=== PATIENT | male | born 1960 | race Caucasian/White ===

== ENCOUNTER 2021-06-14 10:28 | Inpatient (IN) | payer OTHER ==
[2021-06-14] MEDS ORDERED: diazePAM 5 MG TABLET PO SCH (11:00)
[2021-06-14] MEDS ORDERED: MAG HYDROX/AL HYDROX/SIMETH 30 ML UNIT-DOSE CUP PO PRN (11:09)
[2021-06-14] MEDS ORDERED: ACETAMINOPHEN 325 MG TABLET (FP) PO PRN ×2 (11:09)
[2021-06-14] MEDS ORDERED: diazePAM 5 MG TABLET PO PRN (11:09)
[2021-06-14] MEDS ORDERED: MENTHOL/PHENOL 1 EACH UD MM PRN (11:09)
[2021-06-14] MEDS ORDERED: ONDANSETRON *ODT* 4 MG TABLET SL PRN (11:09)
[2021-06-14] MEDS ORDERED: IBUPROFEN 400 MG TABLET (FP) PO PRN (11:09)
[2021-06-14] MEDS ORDERED: BISMUTH SUBSALICYLATE 262 MG/15 ML BTL PO PRN (11:09)
[2021-06-14] MEDS ORDERED: NICOTINE 10 MG CARTRIDGE (INHALER) IH PRN (11:09)
[2021-06-14] MEDS ORDERED: MAGNESIUM CITRATE 300 ML BOTTLE PO PRN (11:09)
[2021-06-14] MEDS ORDERED: METHOCARBAMOL 500 MG TABLET PO PRN (11:09)
[2021-06-14] MEDS ORDERED: MAGNESIUM HYDROX 2400MG/30ML ORAL SUSPENSION 30 ML CUP PO PRN (11:09)
[2021-06-14 11:25] VITALS: BMI 20.7
[2021-06-14] MEDS ORDERED: LORazepam 1 MG TABLET PO PRN (11:56)
[2021-06-14] MEDS: METOPROLOL TARTRATE 25 MG TABLET (FP) PO SCH (13:27)
[2021-06-14] MEDS: PRENATAL VITAMINS W/ FOLIC ACID TABLET (FP) PO SCH (13:27)
[2021-06-14] MEDS: hydrOXYzine PAMOATE 25 MG CAPSULE (FP) PO SCH ×3 (13:33→22:54)
[2021-06-14] MEDS ORDERED: LIPASE PO SCH ×2 (14:00)
[2021-06-14] MEDS ORDERED: AMYLASE PO SCH ×2 (14:00)
[2021-06-14] MEDS ORDERED: PROTEASE PO SCH ×2 (14:00)
[2021-06-14] MEDS ORDERED: [UNRECOGNIZED DRUG - OTHER] PO SCH ×2 (14:00)
[2021-06-14 14:33] LABS: HEMATOCRIT 33.5 % (35.4-49); HEMOGLOBIN 11.5 GM/dL (11.7-16.9); MCH 36.2 pg (25.7-33.7); MCHC 34.4 g/dl (32.0-35.9); MEAN PLT VOLUME 11.2 fl (7.5-11.1); PLATELET COUNT 72 10^3/uL (134-434); RBC 3.19 M/mm3 (4.00-5.60); RDW 14.9 % (11.9-15.9)
[2021-06-14 16:30] LABS: ALBUMIN 2.6 g/dl (3.4-5.0); BLOOD UREA NITROGEN 11.6 mg/dL (7-18); CALCIUM 7.9 mg/dL (8.5-10.1); CREATININE 0.7 mg/dL (0.55-1.3); TOT PROT 7.4 g/dl (6.4-8.2)
[2021-06-14] MEDS ORDERED: PATIENT'S OWN MEDICATION (NON-FORMULARY) (Lipase/Protease/Amylase [Creon Dr 24,000 Units C PO SCH (17:30)
[2021-06-14] MEDS: LORazepam 2 MG TABLET PO SCH ×2 (17:47→22:52)
[2021-06-14] MEDS: LIPASE/PROTEASE/AMYLASE 6,000 UNIT CAPSULE PO SCH (17:51)
[2021-06-14] MEDS ORDERED: prednisoLONE ACETATE 1% OPHTH SUSP 5 ML BOTTLE OS SCH (22:00)
[2021-06-14] MEDS: THIAMINE HCL 100 MG TABLET (FP) PO SCH (22:52)
[2021-06-14] MEDS: MELATONIN 5 MG TABLETS PO SCH (22:52)
[2021-06-14] MEDS: OFLOXACIN 0.3% OPHTHALMIC SOLUTION 5 ML BOTTLE AD SCH (22:53)
[2021-06-14] MEDS: prednisoLONE ACETATE 1% OPHTH SUSP 5 ML BOTTLE OS SCH (22:53)
[2021-06-14] MEDS: DOCUSATE SODIUM 100 MG CAPSULE (FP) PO SCH (22:53)
[2021-06-14] MEDS: PANTOPRAZOLE 40 MG TABLET PO SCH (22:54)
[2021-06-15] MEDS: METOPROLOL TARTRATE 25 MG TABLET (FP) PO SCH ×3 (00:53→22:36)
[2021-06-15] MEDS: hydrOXYzine PAMOATE 25 MG CAPSULE (FP) PO SCH ×5 (05:49→22:36)
[2021-06-15] MEDS: LORazepam 2 MG TABLET PO SCH ×4 (05:50→22:36)
[2021-06-15] MEDS: LIPASE/PROTEASE/AMYLASE 6,000 UNIT CAPSULE PO SCH ×3 (08:25→17:52)
[2021-06-15] MEDS: DOCUSATE SODIUM 100 MG CAPSULE (FP) PO SCH ×2 (10:49→22:35)
[2021-06-15] MEDS: PANTOPRAZOLE 40 MG TABLET PO SCH ×2 (10:49→22:35)
[2021-06-15] MEDS: PRENATAL VITAMINS W/ FOLIC ACID TABLET (FP) PO SCH (10:49)
[2021-06-15] MEDS: prednisoLONE ACETATE 1% OPHTH SUSP 5 ML BOTTLE OS SCH ×2 (10:51→22:38)
[2021-06-15] MEDS: OFLOXACIN 0.3% OPHTHALMIC SOLUTION 5 ML BOTTLE AD SCH ×2 (10:51→22:37)
[2021-06-15] MEDS: ASCORBIC ACID 500 MG TABLET (FP) PO SCH ×2 (12:22→14:54)
[2021-06-15] MEDS: FUROSEMIDE 40 MG TABLET (FP) PO SCH ×2 (12:22→14:54)
[2021-06-15] MEDS: THIAMINE HCL 100 MG TABLET (FP) PO SCH (22:35)
[2021-06-15] MEDS: MELATONIN 5 MG TABLETS PO SCH (22:37)
[2021-06-16] MEDS: LORazepam 1 MG TABLET PO SCH ×4 (05:02→22:43)
[2021-06-16] MEDS: hydrOXYzine PAMOATE 25 MG CAPSULE (FP) PO SCH ×5 (05:02→22:44)
[2021-06-16 05:45] VITALS: TEMP 98.2
[2021-06-16] MEDS ORDERED: diazePAM 5 MG TABLET PO SCH (06:00)
[2021-06-16] MEDS: LIPASE/PROTEASE/AMYLASE 6,000 UNIT CAPSULE PO SCH ×3 (08:13→18:30)
[2021-06-16] MEDS: PRENATAL VITAMINS W/ FOLIC ACID TABLET (FP) PO SCH (10:29)
[2021-06-16] MEDS: FUROSEMIDE 40 MG TABLET (FP) PO SCH (10:30)
[2021-06-16] MEDS: DOCUSATE SODIUM 100 MG CAPSULE (FP) PO SCH ×2 (10:30→22:43)
[2021-06-16] MEDS: ASCORBIC ACID 500 MG TABLET (FP) PO SCH (10:30)
[2021-06-16] MEDS: OFLOXACIN 0.3% OPHTHALMIC SOLUTION 5 ML BOTTLE AD SCH ×2 (10:30→22:44)
[2021-06-16] MEDS: METOPROLOL TARTRATE 25 MG TABLET (FP) PO SCH ×2 (10:30→22:44)
[2021-06-16] MEDS: PANTOPRAZOLE 40 MG TABLET PO SCH ×2 (10:30→22:44)
[2021-06-16] MEDS: prednisoLONE ACETATE 1% OPHTH SUSP 5 ML BOTTLE OS SCH ×2 (10:31→22:44)
[2021-06-16 11:14] LABS: BASO % 0.2 % (0-2.0); EOS % 0.4 % (0-4.5); HEMATOCRIT 36.8 % (35.4-49); HEMOGLOBIN 12.6 GM/dL (11.7-16.9); LYMPH % 40.7 % (8-40); MCH 36.1 pg (25.7-33.7); MCHC 34.3 g/dl (32.0-35.9); MEAN CELL VOLUME 105.2 fl (80-96); MEAN PLT VOLUME 12.4 fl (7.5-11.1); MONO % 10.5 % (3.8-10.2); NEUT % 48.2 % (42.8-82.8); PLATELET COUNT 60 10^3/uL (134-434); RDW 14.7 % (11.9-15.9); WHITE BLOOD COUNT 4.7 K/mm3 (4.0-10.0)
[2021-06-16 13:26] VITALS: BP 148/67; PULSE 75
[2021-06-16 14:57] LABS: ANISOCYTOSIS 2+; MACROCYTOSIS 1+; OVALOCYTE 1+; PLATELET ESTIMATE DECREASED; TARGET CELLS 1+
[2021-06-16] MEDS: MELATONIN 5 MG TABLETS PO SCH (22:44)
[2021-06-16] MEDS: THIAMINE HCL 100 MG TABLET (FP) PO SCH (22:45)
[2021-06-17] MEDS ORDERED: LORazepam 0.5 MG TABLET PO PRN
[2021-06-17] MEDS ORDERED: LORazepam 0.5 MG TABLET PO SCH (05:00)
[2021-06-17] MEDS ORDERED: diazePAM 5 MG TABLET PO SCH (06:00)
[2021-06-18] MEDS ORDERED: LORazepam 0.5 MG TABLET PO ONE (05:00)
[2021-06-18] MEDS ORDERED: diazePAM 5 MG TABLET PO ONE (06:00)
== END 2021-06-16 23:29 | disposition short-term general hospital (02) | DRG 897 ==
LOC: YASAS 10:28 → Y6N 12:08
PROVIDERS: ADMIT Allergy & Immunology; ATTEND Allergy & Immunology
PROC: HZ2ZZZZ Detoxification Services for Substance Abuse Treatment (ICD-10-PCS; principal; 2021-06-14)
DX: F10.230 Alcohol dependence with withdrawal, uncomplicated (principal); F10.282 Alcohol dependence with alcohol-induced sleep disorder; F10.24 Alcohol dependence with alcohol-induced mood disorder; F03.90 Unspecified dementia, unspecified severity, without behavioral disturbance, psychotic disturbance, mood disturbance, and anxiety; K72.10 Chronic hepatic failure without coma; K74.60 Unspecified cirrhosis of liver; K21.9 Gastro-esophageal reflux disease without esophagitis; E78.5 Hyperlipidemia, unspecified; M25.551 Pain in right hip; W06.XXXA Fall from bed, initial encounter; Y92.230 Patient room in hospital as the place of occurrence of the external cause; Z96.652 Presence of left artificial knee joint; Z87.11 Personal history of peptic ulcer disease; Z99.89 Dependence on other enabling machines and devices
CPT/HCPCS: 36415; 80053; 85025; 85027; 86593; 86780; 93005; 93010; C9803; U0003; U0005

== ENCOUNTER 2021-06-16 15:06 | Observation (INO) | payer OTHER ==
[2021-06-16 16:26] VITALS: BMI 26.6
[2021-06-16 17:34] LABS: BASO % 0.4 % (0-2.0); EOS % 0.2 % (0-4.5); HEMATOCRIT 34.3 % (35.4-49); HEMOGLOBIN 11.8 GM/dL (11.7-16.9); LYMPH % 35.7 % (8-40); MCH 35.5 pg (25.7-33.7); MCHC 34.5 g/dl (32.0-35.9); MEAN CELL VOLUME 102.8 fl (80-96); MEAN PLT VOLUME 10.9 fl (7.5-11.1); MONO % 11.8 % (3.8-10.2); NEUT % 51.9 % (42.8-82.8); PLATELET COUNT 55 10^3/uL (134-434); RBC 3.33 M/mm3 (4.00-5.60); RDW 14.2 % (11.9-15.9); WHITE BLOOD COUNT 4.4 K/mm3 (4.0-10.0)
[2021-06-16 18:30] LABS: ALBUMIN 2.8 g/dl (3.4-5.0); ALK PHOS 91 U/L (45-117); ANION GAP 7 MMOL/L (8-16); BLOOD UREA NITROGEN 9.2 mg/dL (7-18); CALCIUM 8.2 mg/dL (8.5-10.1); CHLORIDE 102 mmol/L (98-107); CO2 29 mmol/L (21-32); CREATININE 0.8 mg/dL (0.55-1.3); GLUCOSE,RANDOM 112 mg/dL (74-106); MAGNESIUM 1.3 mg/dL (1.8-2.4); SGOT/AST 67 U/L (15-37); SGPT/ALT 28 U/L (13-61); SODIUM 138 mmol/L (136-145); TOT PROT 7.7 g/dl (6.4-8.2)
[2021-06-16] MEDS ORDERED: POTASSIUM CHLORIDE TABS 20 MEQ TABLET.ER (FP) PO ONE ×2 (18:40→19:30)
[2021-06-16] MEDS ORDERED: MAGNESIUM OXIDE 400 MG TABLET (FP) PO ONE (18:40)
[2021-06-16] MEDS ORDERED: FOLIC ACID 1 MG TABLET (FP) PO ONE (18:56)
[2021-06-16] MEDS ORDERED: THIAMINE HCL 200 MG/2 ML VIAL IVPB ONE (18:56)
[2021-06-16] MEDS ORDERED: THIAMINE HCL 200 MG/2 ML VIAL ONE (19:29)
[2021-06-16] MEDS ORDERED: FOLIC ACID 1 MG TABLET (FP) ONE (19:30)
[2021-06-16] MEDS ORDERED: MAGNESIUM OXIDE 400 MG TABLET (FP) ONE (19:30)
[2021-06-16 21:48] LABS: EPI CELLS 3 /uL (0-25.1); HYALINE CASTS 1 /uL (0-3.1); PH,URINE 6.5 (5.0-8.0); URINE APPEARANCE CLEAR; URINE BACTERIA 15 /uL (0-1359); URINE BILIRUBIN NEGATIVE (NEGATIVE); URINE COLOR DK YELLOW; URINE GLUCOSE (UA) NEGATIVE (NEGATIVE); URINE KETONE TRACE (NEGATIVE); URINE LEUK ESTERASE TRACE (NEGATIVE); URINE NITRITE NEGATIVE (NEGATIVE); URINE PROTEIN NEGATIVE (NEGATIVE); URINE RBC 389 /uL (0-23.9); URINE WBC 13 /uL (0-25.8)
[2021-06-16] MEDS ORDERED: LORazepam 2 MG/ML SDV VIAL IVPUSH ONE (22:26)
[2021-06-16] MEDS ORDERED: LORazepam 2 MG/ML SDV VIAL ONE (22:33)
[2021-06-16] MEDS ORDERED: LORazepam 1 MG TABLET PO PRN (22:48)
[2021-06-16] MEDS ORDERED: PROCHLORPERAZINE INJECTION 10 MG/2 ML VIAL IVPB PRN (22:50)
[2021-06-16] MEDS ORDERED: MELATONIN 5 MG TABLETS PO PRN (22:51)
[2021-06-16] MEDS ORDERED: HALOPERIDOL LACTATE 5 MG/ML IM ONE (23:00)
[2021-06-16] MEDS ORDERED: HALOPERIDOL LACTATE 5 MG/ML ONE (23:07)
[2021-06-17] MEDS ORDERED: FOLIC ACID 1 MG TABLET (FP) ONE (08:19)
[2021-06-17] MEDS ORDERED: ENOXAPARIN NA (PORCINE) 40 MG/0.4 ML DISP.SYRIN SQ ONE (08:19)
[2021-06-17] MEDS ORDERED: THIAMINE HCL 100 MG TABLET (FP) ONE (08:19)
[2021-06-17] MEDS: FOLIC ACID 1 MG TABLET (FP) PO SCH (09:32)
[2021-06-17] MEDS: ENOXAPARIN NA (PORCINE) 40 MG/0.4 ML DISP.SYRIN SQ SCH (09:32)
[2021-06-17] MEDS: THIAMINE HCL 100 MG TABLET (FP) PO SCH (09:32)
[2021-06-17 11:52] LABS: BASO % 0.2 % (0-2.0); EOS % 0.4 % (0-4.5); HEMATOCRIT 33.4 % (35.4-49); HEMOGLOBIN 11.4 GM/dL (11.7-16.9); LYMPH % 37.3 % (8-40); MCHC 34.2 g/dl (32.0-35.9); MEAN CELL VOLUME 105.2 fl (80-96); MEAN PLT VOLUME 12.1 fl (7.5-11.1); MONO % 12.6 % (3.8-10.2); NEUT % 49.5 % (42.8-82.8); PLATELET COUNT 59 10^3/uL (134-434); RBC 3.17 M/mm3 (4.00-5.60); RDW 14.3 % (11.9-15.9); WHITE BLOOD COUNT 4.1 K/mm3 (4.0-10.0)
[2021-06-17 12:17] LABS: CHLORIDE 106 mmol/L (98-107); SODIUM 141 mmol/L (136-145)
[2021-06-17 12:23] LABS: CALCIUM 8.1 mg/dL (8.5-10.1)
[2021-06-17 12:24] LABS: ALBUMIN 2.3 g/dl (3.4-5.0); ANION GAP 5 MMOL/L (8-16); BLOOD UREA NITROGEN 14.7 mg/dL (7-18); CO2 29 mmol/L (21-32); GLUCOSE,RANDOM 110 mg/dL (74-106); MAGNESIUM 1.3 mg/dL (1.8-2.4)
[2021-06-17 12:26] LABS: SGPT/ALT 26 U/L (13-61); TRIGLYCERIDES 58 mg/dL (0-150)
[2021-06-17 12:27] LABS: BILIRUBIN,TOTAL 2.5 mg/dL (0.2-1); CHOLESTEROL 136 mg/dL (50-200); CREATININE 0.9 mg/dL (0.55-1.3); PHOSPHOROUS 3.7 mg/dL (2.5-4.9); SGOT/AST 58 U/L (15-37)
[2021-06-17 12:28] LABS: ALK PHOS 78 U/L (45-117); LDL CHOLESTEROL (ONLY SJRH) 64 mg/dL (5-100); TOT PROT 6.9 g/dl (6.4-8.2)
[2021-06-17 12:29] LABS: HDL CHOLESTEROL 63 mg/dL (40-60)
[2021-06-17 23:26] LABS: METHADONE, UR NEGATIVE (NEGATIVE); PHENCYCLIDINE,URINE NEGATIVE (NEGATIVE); URINE BENZODIAZEPINES NEGATIVE (NEGATIVE)
[2021-06-17 23:27] LABS: URINE BARBITURATES NEGATIVE (NEGATIVE)
[2021-06-17 23:36] LABS: COCAINE, UR NEGATIVE (NEGATIVE); OPIATES, URI NEGATIVE (NEGATIVE); URINE AMPHETAMINES NEGATIVE (NEGATIVE)
[2021-06-18] MEDS ORDERED: MAGNESIUM OXIDE 400 MG TABLET (FP) PO ONE ×2 (08:00→14:51)
[2021-06-18] MEDS: ENOXAPARIN NA (PORCINE) 40 MG/0.4 ML DISP.SYRIN SQ SCH (09:25)
[2021-06-18] MEDS: THIAMINE HCL 100 MG TABLET (FP) PO SCH (09:25)
[2021-06-18] MEDS: FOLIC ACID 1 MG TABLET (FP) PO SCH (09:25)
[2021-06-18] MEDS: ACETAMINOPHEN 325 MG TABLET (FP) PO PRN (09:31)
[2021-06-18 12:17] LABS: BASO % 0.1 % (0-2.0); EOS % 0.3 % (0-4.5); HEMATOCRIT 28.7 % (35.4-49); HEMOGLOBIN 9.8 GM/dL (11.7-16.9); MCH 35.5 pg (25.7-33.7); MCHC 34.1 g/dl (32.0-35.9); MEAN CELL VOLUME 104.1 fl (80-96); MEAN PLT VOLUME 11.5 fl (7.5-11.1); MONO % 12.3 % (3.8-10.2); NEUT % 58.3 % (42.8-82.8); PLATELET COUNT 52 10^3/uL (134-434); RBC 2.75 M/mm3 (4.00-5.60); RDW 14.8 % (11.9-15.9); WHITE BLOOD COUNT 4.3 K/mm3 (4.0-10.0)
[2021-06-18 12:33] LABS: ALBUMIN 2.3 g/dl (3.4-5.0); BLOOD UREA NITROGEN 13.3 mg/dL (7-18); CALCIUM 8.1 mg/dL (8.5-10.1); MAGNESIUM 1.5 mg/dL (1.8-2.4)
[2021-06-18 12:36] LABS: CREATININE 0.8 mg/dL (0.55-1.3); PHOSPHOROUS 3.1 mg/dL (2.5-4.9)
[2021-06-18 12:38] LABS: BILIRUBIN,TOTAL 1.4 mg/dL (0.2-1)
[2021-06-18 12:39] LABS: TOT PROT 6.9 g/dl (6.4-8.2)
[2021-06-18 17:26] LABS: HIV INTERPRETATION NEGATIVE (NEGATIVE)
[2021-06-19] MEDS: ACETAMINOPHEN 325 MG TABLET (FP) PO PRN (01:06)
[2021-06-19 08:13] LABS: HEMATOCRIT 27.3 % (35.4-49); HEMOGLOBIN 9.6 GM/dL (11.7-16.9); MCH 36.8 pg (25.7-33.7); MCHC 35.1 g/dl (32.0-35.9); MEAN PLT VOLUME 11.7 fl (7.5-11.1); PLATELET COUNT 56 10^3/uL (134-434); RDW 14.6 % (11.9-15.9); WHITE BLOOD COUNT 4.5 K/mm3 (4.0-10.0)
[2021-06-19 08:41] LABS: BLOOD UREA NITROGEN 11.7 mg/dL (7-18)
[2021-06-19 08:42] LABS: CALCIUM 8.1 mg/dL (8.5-10.1); MAGNESIUM 1.6 mg/dL (1.8-2.4)
[2021-06-19 08:43] LABS: CREATININE 0.7 mg/dL (0.55-1.3)
[2021-06-19] MEDS: THIAMINE HCL 100 MG TABLET (FP) PO SCH (09:40)
[2021-06-19] MEDS: ENOXAPARIN NA (PORCINE) 40 MG/0.4 ML DISP.SYRIN SQ SCH (09:40)
[2021-06-19] MEDS: FOLIC ACID 1 MG TABLET (FP) PO SCH (09:40)
[2021-06-19] MEDS ORDERED: MULTIVITAMINS (DAILY MVI) TABLET (FP) PO SCH (10:00)
[2021-06-19 14:38] VITALS: BP 140/73; PULSE 74; TEMP 99.2
== END 2021-06-19 17:30 | disposition short-term general hospital (02) ==
LOC: JER 15:06 → JERBED 21:00 → J4S 06-18 02:33
PROVIDERS: ATTEND Internal Medicine
PROC: 3E023GC Introduction of Other Therapeutic Substance into Muscle, Percutaneous Approach (ICD-10-PCS; principal; 2021-06-16)
PROC: 3E033NZ Introduction of Analgesics, Hypnotics, Sedatives into Peripheral Vein, Percutaneous Approach (ICD-10-PCS; 2021-06-16)
PROC: 3E033GC Introduction of Other Therapeutic Substance into Peripheral Vein, Percutaneous Approach (ICD-10-PCS; 2021-06-16)
DX: M25.551 Pain in right hip (principal); F10.130 Alcohol abuse with withdrawal, uncomplicated; K70.30 Alcoholic cirrhosis of liver without ascites; W18.39XA Other fall on same level, initial encounter; Y93.89 Activity, other specified; Y92.230 Patient room in hospital as the place of occurrence of the external cause; K21.9 Gastro-esophageal reflux disease without esophagitis; R55 Syncope and collapse; K27.9 Peptic ulcer, site unspecified, unspecified as acute or chronic, without hemorrhage or perforation; F03.90 Unspecified dementia, unspecified severity, without behavioral disturbance, psychotic disturbance, mood disturbance, and anxiety; Z96.652 Presence of left artificial knee joint; Z29.9 Encounter for prophylactic measures, unspecified; D69.6 Thrombocytopenia, unspecified
CPT/HCPCS: 36415; 70450-TC; 71045-TC-FY; 72125-TC; 72170-TC-FY; 73502-TC-RT-FY; 80048; 80053; 80061; 80307; 81003; 83036; 83735; 84100; 84443; 84484; 85025; 85027; 87389; 93005; 93010; 93880-TC; 96372; 96374; 96375; 97116-GP; 97161-GP; 99285-25; C9803; G0378; U0003; U0005